=== PATIENT | female | born 1960 | race Two or more races ===

== ENCOUNTER 2024-08-03 07:18 | Emergency (ER) | payer OTHER ==
[~2024-08-03] VITALS: Ht 162.6 cm; Wt 69.4 kg
[2024-08-03] MEDS ORDERED: ONDA4TAB11 PO (07:55)
[2024-08-03] MEDS ORDERED: AZIT250T13 PO (07:55)
[2024-08-03 08:29] VITALS: BP 139/84; TEMP 98.3; O2SAT 99
== END 2024-08-03 08:30 | disposition home or self-care (01) ==
LOC: ER 07:40
DX: R19.7 Diarrhea, unspecified (principal); R11.0 Nausea; R10.9 Unspecified abdominal pain